=== PATIENT | male | born 1980 | race Caucasian/White ===

== ENCOUNTER 2016-11-28 16:22 | Emergency (ER) | payer OTHER ==
[~2016-11-28] VITALS: Ht 188 cm; Wt 92.5 kg
[~2016-11-28 16:22] MED LIST: AMOXICILLIN875 MG PO; NAPROSYN500 MG PO; SYMBICORT60 INHALAT IH; VENTOLIN HFA18 GM IH; ZUBSOLV 5.7-1.1 EACH SL
[2016-11-28] MEDS ORDERED: DEPAKOTE125 MG PO (18:00)
[2016-11-28] MEDS ORDERED: CLONIDINE HCL0.1 MG PO (18:46)
[2016-11-28] MEDS ORDERED: VIBRAMYCIN100 MG PO (18:46)
[2016-11-28] MEDS ORDERED: INDOCIN25 MG PO (18:46)
[2016-11-28] MEDS ORDERED: TRAZODONE HCL50 MG PO (18:46)
[2016-11-28] MEDS ORDERED: BACTROBAN OINTM22 GM TP (18:49)
[2016-11-28 19:00] VITALS: BP 114/75
== END 2016-11-28 19:00 | disposition home or self-care (01) ==
LOC: EME 16:22
PROC: 0H9BXZZ Drainage of Right Upper Arm Skin, External Approach (ICD-10-PCS; principal; 2016-11-28)
DX: L02.413 Cutaneous abscess of right upper limb (principal); L03.113 Cellulitis of right upper limb; F19.90 Other psychoactive substance use, unspecified, uncomplicated
CPT/HCPCS: 87070; 87075; 87076; 87185; 87205; 99281; 99284

== ENCOUNTER 2017-04-08 07:56 | Emergency (ER) | payer OTHER ==
[~2017-04-08] VITALS: Ht 188 cm; Wt 115.6 kg
[~2017-04-08 07:56] MED LIST changes: +BACTROBAN OINTM22 GM TP; +CLONIDINE HCL0.1 MG PO; +DEPAKOTE125 MG PO; +INDOCIN25 MG PO; +TRAZODONE HCL50 MG PO; +VIBRAMYCIN100 MG PO
[2017-04-08] MEDS ORDERED: ROBITUSSIN NIG118 ML PO (09:54)
[2017-04-08] MEDS ORDERED: TESSALON200 MG PO (09:54)
[2017-04-08] MEDS ORDERED: MUCUS ER600 MG PO (09:54)
[2017-04-08 10:03] VITALS: BP 149/82
== END 2017-04-08 10:04 | disposition home or self-care (01) ==
LOC: EME 07:56
DX: J06.9 Acute upper respiratory infection, unspecified (principal); J45.909 Unspecified asthma, uncomplicated; F17.210 Nicotine dependence, cigarettes, uncomplicated; Z71.6 Tobacco abuse counseling
CPT/HCPCS: 94640; 99281; 99283

== ENCOUNTER 2017-11-17 15:25 | Emergency (ER) | payer OTHER ==
[~2017-11-17] VITALS: Ht 188 cm; Wt 106.8 kg
[~2017-11-17 15:25] MED LIST changes: +MUCUS ER600 MG PO; +ROBITUSSIN NIG118 ML PO; +TESSALON200 MG PO
[2017-11-17 17:26] LABS: HEMATOCRIT 43.7 % (38.0-50.0); HEMOGLOBIN 15.6 G/DL (12.5-16.6); MCH 31.6 PG (29.0-34.0); MCHC 35.7 G/DL (30.0-36.0); MCV 88.5 FL (86-99); PLATELET COUNT 248 K/uL (156-360); RBC DIS.WIDTH-CV 12.6 % (11.8-14.6); RBC DIS.WIDTH-SD 40.8 % (39-53); RED BLOOD COUNT 4.94 M/uL (4.00-5.50); WHITE BLOOD COUNT 12.4 K/uL (4.1-10.2)
[2017-11-17 17:37] LABS: CHLORIDE 98 mEq/L (99-109); POTASSIUM 3.4 mEq/L (3.7-5.4); SODIUM 136 mEq/L (136-147)
[2017-11-17 17:38] LABS: GLUCOSE 102 mg/dL (70-99)
[2017-11-17 17:42] LABS: CREATININE 1.1 mg/dL (0.6-1.3); GFR ESTIMATE (CALCULATED) > 59 mL/min/ (58.99-99999)
[2017-11-17 17:43] LABS: UREA NITROGEN (BUN) 10 mg/dL (9-23)
[2017-11-17] MEDS ORDERED: BACTRIM,SEPT1 TABLET PO (18:19)
[2017-11-17] MEDS ORDERED: PERCOCET 5/31 TABLET PO (18:19)
[2017-11-17] MEDS ORDERED: KEFLEX500 MG PO (18:19)
[2017-11-17 19:15] VITALS: BP 115/90
== END 2017-11-17 19:17 | disposition home or self-care (01) ==
LOC: EME 15:25
PROC: 0H9LXZZ Drainage of Left Lower Leg Skin, External Approach (ICD-10-PCS; principal; 2017-11-17)
DX: L02.416 Cutaneous abscess of left lower limb (principal); M79.89 Other specified soft tissue disorders; F32.9 Major depressive disorder, single episode, unspecified; F41.9 Anxiety disorder, unspecified; J45.909 Unspecified asthma, uncomplicated; F17.200 Nicotine dependence, unspecified, uncomplicated
CPT/HCPCS: 76882; 80048; 85027; 99281; 99284; J0696